=== PATIENT | female | born 1965 | race Caucasian/White ===

== ENCOUNTER 2022-07-16 10:02 | Outpatient (CLI) | payer BC ==
[2022-07-16] MEDS ORDERED: Iopamidol 300 61% 100 ML VIAL FS ONE (13:40)
== END 2022-07-16 10:03 | disposition home or self-care (01) ==
LOC: CSHCT 10:02
PROVIDERS: ATTEND Nurse Practitioner Family
DX: R93.5 Abnormal findings on diagnostic imaging of other abdominal regions, including retroperitoneum (principal); D17.1 Benign lipomatous neoplasm of skin and subcutaneous tissue of trunk
CPT/HCPCS: 74170; Q9967

== ENCOUNTER 2023-04-15 11:43 | Inpatient (IN) | payer BC ==
[~2023-04-15 11:43] MED LIST: Iopamidol 300 61% 100 ML VIAL FS ONE
[2023-04-15] MEDS ORDERED: Morphine 4 MG/ML VIAL ONE ×2 (12:58→14:22)
[2023-04-15] MEDS ORDERED: Ketorolac Tromethamine 30 MG/ML VIAL ONE (12:59)
[2023-04-15] MEDS ORDERED: Ondansetron PF 4 MG/2 ML Vial ONE (12:59)
[2023-04-15 13:40] LABS: #Monocytes 0.6 10x3/uL (0.0-1.1); #Neutrophils 11.3 10x3/uL (1.5-8.4); %Basophils 0.2 % (0.0-2.0); %Eosinophils 0.3 % (0.0-6.0); %Monocytes 4.4 % (0.0-10.0); %Neutrophils 89.7 % (40.0-75.0); Hematocrit 35.6 % (34.9-44.5); Hemoglobin 12.5 g/dL (12.0-15.5); Mean Corpuscular HGB CONC 35.1 g/dL (32.0-36.0); Mean Corpuscular Hemoglobin 30.8 pg (27.0-33.0); Mean Corpuscular Volume 87.7 fl (81.6-98.3); Mean Platelet Volume 10.1 fl (7.4-10.4); Platelet Count 320 10x3/uL (150-450); Red Blood Cell (RBC) Count 4.06 10x6/uL (3.90-5.03); White Blood Cell (WBC) Count 12.6 10x3/uL (3.5-10.5)
[2023-04-15 13:52] LABS: ALT (SGPT) 16 U/L (8-55); AST (SGOT) 13 U/L (5-34); Albumin 4.4 g/dL (3.5-5.0); Alkaline Phosphatase 86 U/L (40-110); Anion Gap 20 mmol/L (10-20); BUN (Urea Nitrogen) 30 mg/dL (9.8-20.1); Bilirubin, Total 0.6 mg/dL (0.2-1.2); Calc. Creatinine Clearance 0 mL/min (70-130); Calcium 9.5 mg/dL (7.8-10.44); Carbon Dioxide 21 mmol/L (22-29); Chloride 98 mmol/L (98-107); Estimated GFR 73; Globulin 2.4 g/dL (2.4-3.5); Glucose 94 mg/dL (70-105); Lipase 18 U/L (8-78); Potassium 3.8 mmol/L (3.5-5.1); Protein, Total 6.8 g/dL (6.0-8.3); Sodium 135 mmol/L (136-145)
[2023-04-15 13:53] LABS: Troponin I Less than 0.010 ng/mL (< 0.028)
[2023-04-15] MEDS ORDERED: Piperacillin/Tazobactam 3.375 GM VIAL ONE (14:23)
[2023-04-15] MEDS ORDERED: EPINEPHrine 1 MG/ML VIAL ONE (15:57)
[2023-04-15] MEDS ORDERED: Bupivacaine PF 0.5% 30 ML VIAL ONE (15:58)
[2023-04-15] MEDS ORDERED: PROPOFOL 20 ML ONE (15:59)
[2023-04-15] MEDS ORDERED: fentaNYL 50 mcg/mL 1 mL Vial ONE (16:00)
[2023-04-15] MEDS ORDERED: Ondansetron HCl/PF 4 MG/2 ML Vial IVP PRN ×2 (16:51→18:06)
[2023-04-15] MEDS ORDERED: Promethazine HCl 25 MG/ML VIAL IM PRN ×2 (16:51→18:06)
[2023-04-15] MEDS ORDERED: Ondansetron PF 4 MG/2 ML Vial IVP PRN (17:24)
[2023-04-15] MEDS ORDERED: hydrALAZINE 20 MG/ML VIAL SLOW IVP PRN (17:24)
[2023-04-15] MEDS ORDERED: Morphine 4 MG/ML VIAL SLOW IVP PRN (17:24)
[2023-04-15] MEDS ORDERED: Ipratropium/Albuterol 3 ML NEB NEB PRN (17:24)
[2023-04-15] MEDS ORDERED: TETANUS, DIPHTHERIA TOX,ADULT (TDVAX) 0.5 ML VIAL IM ONE (17:24)
[2023-04-15] MEDS ORDERED: Ondansetron ODT 4 MG TAB PO PRN (17:24)
[2023-04-15 19:53] VITALS: BMI 22.4
[2023-04-15] MEDS: NS 0.9% w/ 20 MEQ KCL 1,000 ML/1,000 ML BAG IV SCH (20:25)
[2023-04-15] MEDS: Acetaminophen 500 MG TAB PO SCH (20:41)
[2023-04-15] MEDS: Piperacillin/Tazobactam 3.375 GM in Sodium Chloride 0.9% 100 ML IVPB SCH (22:19)
[2023-04-15 23:28] LABS: Bilirubin Neg (Negative); Blood, Urine 25 (Negative); Clarity Clear (Clear); Glucose, Urine (Dipstick) Normal (Negative); Ketone, Urine Negative (Negative); Leukocyte Negative (Negative); Nitrite Negative (Negative); Protein, Urine (Dipstick) 15 mg/dl (Neg-Trace); Urobilinogen Normal mg/dL (Less than 2)
[2023-04-15 23:34] LABS: CAUTI Indications for Culture Fever or rigors; RBC/HPF 0-3 HPF (0-3); Squamous Epithelial 0-3 HPF (0-3); WBC/HPF None Seen HPF (0-3)
[2023-04-15 23:35] LABS: Bacteria/HPF None Seen HPF (None Seen)
[2023-04-15 23:36] LABS: Urine Culture Reflex No No
[2023-04-16] MEDS: Ketorolac Tromethamine 30 MG/ML VIAL IVP SCH ×4 (00:17→18:05)
[2023-04-16 04:29] LABS: Anion Gap 14 mmol/L (10-20); BUN (Urea Nitrogen) 23 mg/dL (9.8-20.1); Calc. Creatinine Clearance 75 mL/min (70-130); Carbon Dioxide 20 mmol/L (22-29); Chloride 106 mmol/L (98-107); Estimated GFR 75; Glucose 164 mg/dL (70-105); Potassium 4.1 mmol/L (3.5-5.1); Sodium 136 mmol/L (136-145)
[2023-04-16 04:33] LABS: Hematocrit 32.8 % (34.9-44.5); Hemoglobin 11.4 g/dL (12.0-15.5); MDiff Complete? YES; Mean Corpuscular HGB CONC 34.8 g/dL (32.0-36.0); Mean Corpuscular Hemoglobin 30.8 pg (27.0-33.0); Mean Corpuscular Volume 88.6 fl (81.6-98.3); Platelet Count 303 10x3/uL (150-450); RBC Distribution Width 12.4 % (11.5-14.5); White Blood Cell (WBC) Count 8.7 10x3/uL (3.5-10.5)
[2023-04-16 06:05] LABS: Band 10 % (5-11); Lymphocytes 3 % (21-51); Monocytes 3 % (0-10); Neutrophil 84 % (42-75)
[2023-04-16] MEDS: Piperacillin/Tazobactam 3.375 GM in Sodium Chloride 0.9% 100 ML IVPB SCH ×3 (06:06→21:20)
[2023-04-16 06:09] LABS: Platelet Adequacy Comment Appears Adequate; RBC Morph Comment Within Normal Limits
[2023-04-16] MEDS: NS 0.9% w/ 20 MEQ KCL 1,000 ML/1,000 ML BAG IV SCH ×3 (08:30→14:59)
[2023-04-16] MEDS: Acetaminophen 500 MG TAB PO SCH ×4 (08:35→21:21)
[2023-04-16] MEDS ORDERED: Pantoprazole 40 MG VIAL IVP SCH (09:00)
[2023-04-16] MEDS: traMADol HCl 50 MG TAB PO PRN (21:15)
[2023-04-17] MEDS: Ketorolac Tromethamine 30 MG/ML VIAL IVP SCH (00:31)
[2023-04-17] MEDS ORDERED: Ibuprofen 600 MG TAB PO PRN (06:38)
[2023-04-17] MEDS: Piperacillin/Tazobactam 3.375 GM in Sodium Chloride 0.9% 100 ML IVPB SCH ×2 (07:06→14:08)
[2023-04-17] MEDS ORDERED: Sodium Chloride 0.9% 1,000 ML IV SCH ×2 (09:15→18:00)
[2023-04-17] MEDS: Acetaminophen 500 MG TAB PO SCH ×3 (09:56→18:56)
[2023-04-17] MEDS: traMADol HCl 50 MG TAB PO PRN (14:12)
[2023-04-17] MEDS ORDERED: Amoxicillin/Potassium Clav 875 MG TAB PO SCH ×3 (14:45→21:00)
[2023-04-17 17:47] VITALS: BP 141/62; TEMP 98.1
[2023-04-17] MEDS ORDERED: Venlafaxine HCl XR 75 MG CAP PO SCH (21:00)
[2023-04-17] MEDS ORDERED: Lisinopril 20 MG TAB PO SCH (21:00)
== END 2023-04-17 19:27 | disposition home or self-care (01) | DRG 399 ==
LOC: CSHERS 11:43 → CSHER/OP 16:21 → CSHERS 16:32 → EDSTATUS 18:02 → CSHTELE 18:13
PROVIDERS: ADMIT Specialist; ATTEND Specialist
PROC: 0DTJ4ZZ Resection of Appendix, Percutaneous Endoscopic Approach (ICD-10-PCS; principal; 2023-04-15)
PROC: 0W9G4ZZ Drainage of Peritoneal Cavity, Percutaneous Endoscopic Approach (ICD-10-PCS; 2023-04-15)
DX: K35.33 Acute appendicitis with perforation, localized peritonitis, and gangrene, with abscess (principal); K90.0 Celiac disease; J45.909 Unspecified asthma, uncomplicated; I10 Essential (primary) hypertension; F41.9 Anxiety disorder, unspecified
CPT/HCPCS: 36415; 74177; 80048; 80053; 81001; 83605; 83690; 84484; 85025; 87040; 88304; 93005; 94760; A4649; C1713; C9113; J0171; J1650; J1885; J2270; J2405; J2543; J2704; J3010; J3480; J3490; J7050; Q9967; S0020